=== PATIENT | female | born 1935 | race Caucasian/White ===

== ENCOUNTER → 2016-08-30 | Day surgery (SDC) | payer OTHER ==
[~2016-08-30] VITALS: Ht 172.7 cm; Wt 59.2 kg
[~2016-08-30] MED LIST: ACETAMINOPHEN 500 MG CPLT PO PRN; ASPI1POW8 PO; ATROPINE SULFATE 1% OPHT SOLN 2 ML BTL ONE; B CO1CAP2 PO; BALANCED SALT SOLN OPHT IRRIG 15 ML BTL ONE; CHLORHEXIDINE GLUCONATE 2 % 1 PACK (2 CLOTHS) TOPICAL PRN; CO Q100C9 PO; DEXAMETHASONE SOD PHOS 4 MG/ML VIAL ONE; DO NOT ADM ANY ANTICOAGULANT DRUGS PRN; EPINEPHrine HCL (1:1000) 1 MG/ML VIAL ONE; FURO40TA PO; INSULIN HUMAN REGULAR 1,000 UNITS/10 ML VIAL SQ PRN; LACTATED RINGER'S 1000 ML INJ 1,000 ML IV ONE; LACTATED RINGER'S 1000 ML IV PRN; METOPROLOL TARTRATE 25 MG TAB PO PRN; ONDANSETRON HCL 4 MG/2 ML VIAL IM PRN; ONDANSETRON HCL 4 MG/2 ML VIAL IV PUSH ONE; POTA10CA PO; POVIDONE IODINE 5% (ANTISEPSIS KIT) 4 APPLICATIONS EACH NARE PRN; PROPOFOL 200 MG/20 ML AMP IV ONE; SODIUM CHLORID 0.9% 500 ML IV PRN; STERILE WATER FOR INJ 20 ML VIAL ONE; TOBRAMYCIN 0.3%/DEXAMETHASONE 0.1% OPHT SUSP 5 ML BTL ONE; TOBRAMYCIN/DEXAMETHASONE OPTH OINT 3.5 GM TUBE ONE; TRIAMCINOLONE ACETONIDE/PF 40 MG/ML OPTH VIAL ONE; ceFAZolin INJ 1,000 MG VIAL ONE; oxyCODONE/ACETAMINOPHEN 5 MG/325 MG TAB PO PRN
[2016-08-30 07:26] VITALS: BP 164/69; PULSE 56; RESP 18; TEMP 97.3; O2SAT 98
[2016-08-30 07:37] LABS: AUTOMATED NEUTROPHIL # 3.1 TH/MM3 (1.8-7.7); BASOPHIL % 0.6 % (0.0-2.0); EOSINOPHIL # 0.2 TH/MM3 (0-0.4); EOSINOPHIL % 4.8 % (0.0-4.0); HEMATOCRIT 42.9 % (35.0-46.0); HEMO FLAGS DIFF FINAL; LYMPH % 18.9 % (9.0-44.0); LYMPHOCYTE # 0.9 TH/MM3 (1.0-4.8); MEAN CELL VOLUME 94.7 FL (80.0-100.0); MEAN CORPUSCULAR HEMOGLOBIN 31.6 PG (27.0-34.0); MEAN CORPUSCULAR HGB CONC 33.4 % (32.0-36.0); NEUT % 66.7 % (16.0-70.0); PLATELET COUNT 179 TH/MM3 (150-450); RED BLOOD COUNT 4.53 MIL/MM3 (4.00-5.30); RED CELL DISTRIBUTION WIDTH 12.6 % (11.6-17.2); WHITE BLOOD COUNT 4.7 TH/MM3 (4.0-11.0)
[2016-08-30] MEDS: TROPICAMIDE 1% OPHT SOLN 15 ML BTL RIGHT EYE SCH ×4 (08:14→09:00)
[2016-08-30] MEDS: CYCLOPENTOLATE HCL 1% OPHT SOLN 2 ML BTL RIGHT EYE SCH ×4 (08:14→09:00)
[2016-08-30] MEDS: PHENYLEPHRINE HCL 2.5% OPTH SOLN 2 ML BTL RIGHT EYE SCH ×4 (08:14→09:00)
--- NOTE | 2016-08-30 08:15 | EKG ---
Date Performed: 08/30/2016 Time Performed: 06:53:21 PTAGE: 80 years EKG: SINUS BRADYCARDIA POSSIBLE RIGHT VENTRICULAR CONDUCTION DELAY ANTEROSEPTAL MYOCARDIAL INFAR CTION , OF INDETERMINATE AGE ABNORMAL ECG NO PREVIOUS TRACING DOCTOR: Kenton Good Interpretating Date/Time 08/30/2016 08:11:37
[2016-08-30] MEDS: ATROPINE SULFATE 1% OPHT SOLN 5 ML BTL RIGHT EYE SCH ×3 (08:30→09:00)
[2016-08-30 12:00] VITALS: BP 120/80; PULSE 60; RESP 20; TEMP 97.6; O2SAT 97
--- NOTE | 2016-08-31 18:12 | MP ---
cc: LISBET ROWELL M.D. DATE OF SURGERY: 08/31/2016. PREOPERATIVE DIAGNOSIS: Full-thickness macular hole right eye. POSTOPERATIVE DIAGNOSIS: Full-thickness macular hole right eye. OPERATIVE PROCEDURE PERFORMED: Trans pars plana vitrectomy with internal limiting membrane peel, gas/fluid exchange right eye. SURGEON: Lisbet Rowell MD. ANESTHESIA: General laryngeal mask anesthesia. INDICATIONS FOR THE PROCEDURE: Ms. Tavera is an 80-year-old woman who developed a full-thickness macular hole in her right eye. This was confirmed on OCT imaging and her vision was down to 20/400 in that eye. She wished to proceed electively with a vitrectomy, internal limiting membrane peel and gas/fluid exchange followed by postop prone positioning or face-down positioning to try and repair the macular hole and improve her visual functioning in the right eye. The risks and benefits of surgery were discussed with the patient. Informed consent was obtained. No guarantee was made as to visual outcome. DESCRIPTION OF THE PROCEDURE IN DETAIL: She was brought to [facility] Operating Room #1 and placed on the operating table. Appropriate anesthesia monitoring devices were applied and she was placed under general anesthesia using a laryngeal mask. The right eye was identified as the operative site and then prepped and draped in the usual sterile fashion. A lid speculum was placed. The microscope was brought around and adjusted/ At this point, an appropriate time-out was called with the surgical team agreeing to the surgical site and planned procedure. Using the Pramod 23-gauge vitrectomy system, the trocar cannulas were placed 4 mm posterior to the limbus after first displacing the conjunctiva and with a beveled entrance through the sclera. The first one was placed at approximately 8:45 o'clock and verified to be in the posterior chamber. An infusion cannula was attached to it. Two additional trocar cannulas were placed at 10 and 2 o'clock. A small amount of Kenalog was injected into the vitreous cavity for visualization of the vitreous. Using the BIOME wide angle viewing system, the eye was entered with the Endo eliminator light pipe and vitrectomy cutter and a core vitrectomy was carried out. The BIOME was replaced with the flat contact lens for higher magnified viewing and using the soft tipped linear extrusion needle, the posterior hyaloid was elevated over the optic nerve and macula into the mid periphery using the BIOME wide angle viewing system. The posterior hyaloid and residual cortical vitreous was removed out into the periphery. Using the flat contact lens, a Christiano membrane scraper the internal limiting membrane was removed from around the edges of the hole. The plugs were placed back in the eye and the fundus was inspected with the indirect ophthalmoscope and scleral depression. No retinal breaks were found. Under the BIOME wide angle viewing system and with the soft tipped linear extrusion needle, an air-fluid exchange was performed. The air was then exchanged for a 24% mixture of SF6 gas by slowly insufflating 55 mL of the gas mixture slowly through the eye. The plugs were placed back in the cannulas and then they were removed one by one with tamponade of the site with a cotton swab and diathermy to the overlying conjunctival wound. The eye was left with good pressure and no visible air leaks. Atropine drops were placed on the cornea followed by subconjunctival actions of Ancef 125 mg in 0.5 cc and Decadron 2 mg in 0.5 cc. The lid speculum was removed and the patient was undraped. TobraDex ointment was placed on the cornea and then the right eye was patched and shielded. 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 When awake and alert, she will be asked to begin face-down positioning. MD HERIBERTO Gottlieb/EDEN /11:11 AM /5:30 PM
== END | disposition home or self-care (01) ==
LOC: HSDC 06:21
PROVIDERS: ATTEND Ophthalmology
DX: H35.341 Macular cyst, hole, or pseudohole, right eye (principal); R94.31 Abnormal electrocardiogram [ECG] [EKG]
CPT/HCPCS: 00145; 67042; 85025; 93005; J0171; J0690; J1100; J2405; J3300; J7120